=== PATIENT | female | born 1990 | race African-American/Black ===

== ENCOUNTER 2017-10-29 05:55 | Emergency (ER) | payer OTHER ==
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
--- NOTE | 2017-10-29 06:39 | NUR ---
CALLED AGAIN; NO ANSWER
--- NOTE | 2017-10-29 06:54 | NUR ---
VINCENTD AGAIN; NO ANSWER
== END 2017-10-29 06:56 | disposition left against medical advice (07) ==
LOC: ER 06:11
DX: Z53.21 Procedure and treatment not carried out due to patient leaving prior to being seen by health care provider (principal)

== ENCOUNTER 2019-03-22 22:56 | Emergency (ER) | payer OTHER ==
[~2019-03-22] VITALS: Ht 167.6 cm; Wt 126.1 kg
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
[2019-03-23 02:36] LABS: BASOPHILS % (AUTO) 0.1 % (0.0-2.0); EOSINOPHILS % (AUTO) 0.1 % (0.0-6.0); HEMATOCRIT 41 % (33-45); HEMOGLOBIN 13.5 g/dL (11.5-14.8); LYMPHOCYTES # (AUTO) 1.2 /CMM (0.8-4.8); LYMPHOCYTES % (AUTO) 4.1 % (20.0-44.0); MEAN CORPUSCULAR HGB CONC 33 g/dl (31.0-36.0); MEAN CORPUSCULAR VOLUME 93 fL (82-100); MONOCYTES # (AUTO) 1.7 /CMM (0.1-1.30); MONOCYTES % (AUTO) 5.8 % (2.0-12.0); NEUTROPHILS % (AUTO) 89.9 % (43.0-81.0); PLATELET COUNT (AUTO) 351 /CMM (150-450); RED BLOOD CELL COUNT(AUTO) 4.38 MIL/uL (4.0-5.2); WHITE BLOOD COUNT (AUTO) 28.9 K/uL (4.3-11.0)
[2019-03-23 02:42] LABS: CALCIUM, SERUM 9.3 mg/dL (8.5-10.1); POTASSIUM 3.5 mmol/L (3.5-5.1)
[2019-03-23 03:25] LABS: APPEARANCE,URINE Slightly Cloudy (CLEAR); BILIRUBIN,URINE SMALL (NEGATIVE); BLOOD, URINE Trace-lysed Ery/uL (NEGATIVE); COLOR,URINE Dark (YELLOW); KETONES,URINE 15 (NEGATIVE); LEUKOCYTE ESTERASE ,URINE Trace (NEGATIVE); NITRITE, URINE Positive (NEGATIVE); PH,URINE 5.5 (5.0-8.0); PROTEIN,URINE 100 mg/dl (NEGATIVE); UGLUCOSE Negative (NEGATIVE); UROBILINOGEN,URINE 0.2 EU/dL (0.2)
[2019-03-23 04:01] LABS: WBC,URINE 21-50 /HPF (0-3)
[2019-03-23 04:02] LABS: BACTERIA,URINE Moderate /HPF (None Seen); SQUAMOUS EPITHELIAL CELL,UR Few /HPF (None Seen)
[2019-03-23 04:07] VITALS: BP 122/71
[2019-03-23 04:18] LABS: LYMPHOCYTES % (MANUAL) 3 % (16-48); NEUTROPHILS % (MANUAL) 95 (42-76)
[2019-03-23 04:19] LABS: MONOCYTES % (MANUAL) 2 % (0-11.0)
== END 2019-03-23 04:07 | disposition home or self-care (01) ==
LOC: ER 23:03
DX: N39.0 Urinary tract infection, site not specified (principal); R00.0 Tachycardia, unspecified; J45.909 Unspecified asthma, uncomplicated; Z60.2 Problems related to living alone
CPT/HCPCS: 36415; 71045-TC; 80048-TC; 81000-TC; 85025-TC; 87086-TC; 87186-TC

== ENCOUNTER 2019-04-11 14:55 | Emergency (ER) | payer OTHER ==
[~2019-04-11] VITALS: Ht 167.6 cm; Wt 128.8 kg
--- NOTE | 2019-04-11 15:20 | NUR ---
NAUSEA AND VOMITING, FEELING "FLUSHED" S/P EATING LUNCH AT 1200 TOOK TYLENOL AND MOTRIN W/ NO RELIEF, VOMITING WHILE AT TRIAGE. PATIENT A/OX3, BREATHING EVEN AND UNLABORED, NO SOB NOTED. ATTACHED TO THE MONITOR. PENDING MD GERBER.
[2019-04-11] MEDS ORDERED: ONDANSETRON HCL/PF 4 MG/2 ML VIAL IVP ONE (15:30)
[2019-04-11] MEDS ORDERED: IV NS 0.9% 1,000 ML BAG IV ONE (15:30)
[2019-04-11 15:55] LABS: BASOPHILS # (AUTO) 0.1 /CMM (0.0-0.2); BASOPHILS % (AUTO) 0.4 % (0.0-2.0); EOSINOPHILS % (AUTO) 0.1 % (0.0-6.0); HEMATOCRIT 42 % (33-45); HEMOGLOBIN 14.3 g/dL (11.5-14.8); LYMPHOCYTES # (AUTO) 2.4 /CMM (0.8-4.8); LYMPHOCYTES % (AUTO) 12.4 % (20.0-44.0); MEAN CORPUSCULAR HGB CONC 34 g/dl (31.0-36.0); MEAN CORPUSCULAR VOLUME 94 fL (82-100); MONOCYTES # (AUTO) 0.5 /CMM (0.1-1.30); MONOCYTES % (AUTO) 2.3 % (2.0-12.0); NEUTROPHILS # (AUTO) 16.6 /CMM (1.8-8.9); NEUTROPHILS % (AUTO) 84.8 % (43.0-81.0); PLATELET COUNT (AUTO) 399 /CMM (150-450); RED BLOOD CELL COUNT(AUTO) 4.52 MIL/uL (4.0-5.2); WHITE BLOOD COUNT (AUTO) 19.5 K/uL (4.3-11.0)
[2019-04-11] MEDS ORDERED: ONDANSETRON HCL/PF 4 MG/2 ML VIAL ONE (15:58)
[2019-04-11 16:02] LABS: CALCIUM, SERUM 9.3 mg/dL (8.5-10.1); POTASSIUM 2.9 mmol/L (3.5-5.1)
[2019-04-11 16:04] LABS: APPEARANCE,URINE Slightly Cloudy (CLEAR); BILIRUBIN,URINE Negative (NEGATIVE); BLOOD, URINE Moderate Ery/uL (NEGATIVE); COLOR,URINE Yellow (YELLOW); KETONES,URINE Negative (NEGATIVE); LEUKOCYTE ESTERASE ,URINE Trace (NEGATIVE); NITRITE, URINE Negative (NEGATIVE); PH,URINE 5.5 (5.0-8.0); PROTEIN,URINE Negative (NEGATIVE); UGLUCOSE Negative (NEGATIVE); UROBILINOGEN,URINE 0.2 EU/dL (0.2)
[2019-04-11 16:08] LABS: ALBUMIN 3.8 g/dL (3.4-5.0); BILIRUBIN,DIRECT 0.1 mg/dL (0.0-0.2); BILIRUBIN,TOTAL 0.8 mg/dL (0.2-1.0); TOTAL PROTEIN, SERUM 7.6 g/dL (6.4-8.2)
[2019-04-11 16:15] LABS: BACTERIA,URINE Few /HPF (None Seen); SQUAMOUS EPITHELIAL CELL,UR Few /HPF (None Seen)
[2019-04-11] MEDS ORDERED: POTASSIUM CHLORIDE 20 MEQ TAB.PRT.SR PO ONE ×2 (16:41→17:00)
--- NOTE | 2019-04-11 17:09 | NUR ---
PATIENT FEELS BETTER, PIV REMOVED, RX PROVIDED. Patient discharged to home in stable condition. Written and verbal after care instructions given. Patient verbalizes understanding of instruction.
[2019-04-11 17:12] VITALS: BP 114/55
== END 2019-04-11 17:13 | disposition home or self-care (01) ==
LOC: ER 15:00
DX: R11.2 Nausea with vomiting, unspecified (principal); D72.829 Elevated white blood cell count, unspecified; E87.6 Hypokalemia; J45.909 Unspecified asthma, uncomplicated; Z60.2 Problems related to living alone
CPT/HCPCS: 36415; 80048; 80076; 81001; 83690; 84703; 85025; 96361; 96374; 99283; J2405; J7030; 81000-TC

== ENCOUNTER 2019-04-26 13:13 | Emergency (ER) | payer OTHER ==
[~2019-04-26] VITALS: Ht 167.6 cm; Wt 124.7 kg
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
--- NOTE | 2019-04-26 13:55 | NUR ---
KATE STEVE AT BEDSIDE
[2019-04-26 14:25] LABS: BASOPHILS # (AUTO) 0.1 /CMM (0.0-0.2); BASOPHILS % (AUTO) 0.3 % (0.0-2.0); EOSINOPHILS % (AUTO) 0.4 % (0.0-6.0); HEMATOCRIT 43 % (33-45); HEMOGLOBIN 14.4 g/dL (11.5-14.8); LYMPHOCYTES # (AUTO) 2.7 /CMM (0.8-4.8); LYMPHOCYTES % (AUTO) 15.8 % (20.0-44.0); MEAN CORPUSCULAR HGB CONC 34 g/dl (31.0-36.0); MEAN CORPUSCULAR VOLUME 93 fL (82-100); MONOCYTES # (AUTO) 0.7 /CMM (0.1-1.30); MONOCYTES % (AUTO) 3.9 % (2.0-12.0); NEUTROPHILS # (AUTO) 13.7 /CMM (1.8-8.9); NEUTROPHILS % (AUTO) 79.6 % (43.0-81.0); PLATELET COUNT (AUTO) 384 /CMM (150-450); RED BLOOD CELL COUNT(AUTO) 4.62 MIL/uL (4.0-5.2); WHITE BLOOD COUNT (AUTO) 17.2 K/uL (4.3-11.0)
[2019-04-26 14:33] LABS: CALCIUM, SERUM 9.2 mg/dL (8.5-10.1); CREATININE 0.8 mg/dL (0.6-1.3); POTASSIUM 3.4 mmol/L (3.5-5.1)
[2019-04-26 14:44] LABS: ALBUMIN 3.7 g/dL (3.4-5.0); BILIRUBIN,DIRECT 0.1 mg/dL (0.0-0.2); BILIRUBIN,TOTAL 0.6 mg/dL (0.2-1.0); TOTAL PROTEIN, SERUM 7.6 g/dL (6.4-8.2)
[2019-04-26] MEDS ORDERED: HYDROMORPHONE 1 MG/1 ML DISP.SYRIN ONE (14:46)
[2019-04-26] MEDS ORDERED: ONDANSETRON HCL/PF 4 MG/2 ML VIAL ONE (14:46)
[2019-04-26] MEDS ORDERED: ONDANSETRON HCL/PF 4 MG/2 ML VIAL IV ONE (15:00)
[2019-04-26] MEDS ORDERED: HYDROMORPHONE 1 MG/1 ML DISP.SYRIN IV ONE (15:00)
--- NOTE | 2019-04-26 15:04 | NUR ---
US TECH AT BEDSIDE
[2019-04-26 15:43] LABS: THYROID STIMULATING HORMONE 3.281 uIU/mL (0.358-3.74)
[2019-04-26 16:18] LABS: LYMPHOCYTES % (MANUAL) 17 % (16-48); MONOCYTES % (MANUAL) 4 % (0-11.0); NEUTROPHILS % (MANUAL) 79 (42-76)
[2019-04-26] MEDS ORDERED: POTASSIUM CHLORIDE 20 MEQ TAB.PRT.SR PO ONE ×2 (16:30→16:32)
[2019-04-26 16:40] LABS: APPEARANCE,URINE Slightly Cloudy (CLEAR); BILIRUBIN,URINE Negative (NEGATIVE); BLOOD, URINE Negative Ery/uL (NEGATIVE); COLOR,URINE Dark (YELLOW); KETONES,URINE Negative (NEGATIVE); LEUKOCYTE ESTERASE ,URINE Trace (NEGATIVE); NITRITE, URINE Negative (NEGATIVE); PH,URINE 6.5 (5.0-8.0); PROTEIN,URINE Trace mg/dl (NEGATIVE); UGLUCOSE Negative (NEGATIVE)
[2019-04-26 16:53] LABS: BACTERIA,URINE Many /HPF (None Seen); SQUAMOUS EPITHELIAL CELL,UR Many /HPF (None Seen)
[2019-04-26 16:54] LABS: RBC,URINE 0-2 /HPF (0-2)
--- NOTE | 2019-04-26 17:45 | NUR ---
IV removed. Catheter intact and site benign. Pressure and 4x4 applied to site. No bleeding noted.Patient discharged to home in stable condition. Written and verbal after care instructions given. Patient verbalizes understanding of instruction.
[2019-04-26 17:47] VITALS: BP 128/89
== END 2019-04-26 17:47 | disposition home or self-care (01) ==
LOC: ER 13:13
DX: D72.829 Elevated white blood cell count, unspecified (principal); R51 Headache; R82.90 Unspecified abnormal findings in urine; E66.01 Morbid (severe) obesity due to excess calories; J45.909 Unspecified asthma, uncomplicated; Z68.41 Body mass index [BMI] 40.0-44.9, adult; Z60.2 Problems related to living alone
CPT/HCPCS: 36415; 76536; 80048; 80076; 81001; 84439; 84443; 84481; 84703; 85025; 85652; 86140; 87086; 93005; 96374; 96375; 99284; J1170; J2405; 81000-TC

== ENCOUNTER 2019-06-10 15:20 | Emergency (ER) | payer OTHER ==
[~2019-06-10] VITALS: Ht 167.6 cm; Wt 127.0 kg
--- NOTE | 2019-06-10 15:30 | NUR ---
Came in for Body Pain "Been here for same thing before. Information is there." Chills/cold. Anxious hyperventilating. To ER bed 12, hooked to ira, changed to gowbrandt, provided w warm blanket. Awaiting md witt.
--- NOTE | 2019-06-10 15:45 | NUR ---
KATE Shrestha at Bedside
[2019-06-10] MEDS ORDERED: ONDANSETRON HCL/PF 4 MG/2 ML VIAL IVP ONE (16:00)
[2019-06-10] MEDS ORDERED: IV NS 0.9% 1,000 ML BAG IV ONE (16:00)
[2019-06-10] MEDS ORDERED: HYDROMORPHONE INJ 2 MG/ML DISP.SYRIN IV ONE (16:00)
[2019-06-10] MEDS ORDERED: ONDANSETRON HCL/PF 4 MG/2 ML VIAL ONE (16:01)
[2019-06-10] MEDS ORDERED: HYDROMORPHONE 1 MG/1 ML DISP.SYRIN ONE (16:01)
[2019-06-10] MEDS ORDERED: LIDOCAINE 1%-EPI 1:100,000 20 ML VIAL TP ONE (17:30)
[2019-06-10] MEDS ORDERED: ACETAMINOPHEN 325 MG TABLET PO ONE (17:30)
[2019-06-10 17:36] VITALS: BP 126/67
== END 2019-06-10 17:39 | disposition home or self-care (01) ==
LOC: ER 15:20
DX: M79.18 Myalgia, other site (principal); J45.909 Unspecified asthma, uncomplicated; E87.6 Hypokalemia
CPT/HCPCS: 96374; 96375; 99283; J1170; J2405; J7030

== ENCOUNTER 2019-07-30 13:34 | Emergency (ER) | payer OTHER ==
[~2019-07-30] VITALS: Ht 167.6 cm; Wt 90.7 kg
[2019-07-30 13:59] VITALS: BP 144/79
[2019-07-30] MEDS ORDERED: HYDROCODONE/APAP 5/325MG 1 EACH TABLET PO ONE (14:30)
[2019-07-30] MEDS ORDERED: HYDROCODONE/APAP 5/325MG 1 EACH TABLET ONE (14:49)
== END 2019-07-30 15:14 | disposition home or self-care (01) ==
LOC: ER 13:34
DX: M79.10 Myalgia, unspecified site (principal); G89.29 Other chronic pain; J45.909 Unspecified asthma, uncomplicated

== ENCOUNTER 2020-05-28 15:12 | Emergency (ER) | payer OTHER ==
[~2020-05-28] VITALS: Ht 167.6 cm; Wt 117.5 kg
[2020-05-28 15:30] VITALS: BP 169/91
== END 2020-05-28 16:06 | disposition home or self-care (01) ==
LOC: ER 15:14
DX: J02.0 Streptococcal pharyngitis (principal); J45.909 Unspecified asthma, uncomplicated

== ENCOUNTER 2021-06-16 09:07 | Emergency (ER) | payer OTHER ==
[~2021-06-16] VITALS: Ht 167.6 cm; Wt 115.7 kg
[2021-06-16 09:11] VITALS: BP 164/106
--- NOTE | 2021-06-16 09:12 | NUR ---
AT BEDSIDE FOR EVAL
[2021-06-16] MEDS ORDERED: SILVER SULFADIAZINE CREAM 25 GM TUBE ONE (09:16)
--- NOTE | 2021-06-16 09:20 | NUR ---
WOUND CLEANING AND DRESSING BY IT TRAINEE.
--- NOTE | 2021-06-16 09:26 | NUR ---
Patient discharged to home in stable condition. Written and verbal after care instructions given. Patient verbalizes understanding of instruction.
[2021-06-16] MEDS ORDERED: SILVER SULFADIAZINE CREAM 25 GM TUBE TP ONE (09:30)
== END 2021-06-16 09:26 | disposition home or self-care (01) ==
LOC: ER 09:11
DX: T24.232A Burn of second degree of left lower leg, initial encounter (principal); J45.909 Unspecified asthma, uncomplicated; W86.1XXA Exposure to industrial wiring, appliances and electrical machinery, initial encounter; Y93.89 Activity, other specified; Y92.89 Other specified places as the place of occurrence of the external cause; Y99.8 Other external cause status

== ENCOUNTER 2021-08-22 07:37 | Emergency (ER) | payer OTHER ==
[~2021-08-22] VITALS: Ht 167.6 cm; Wt 113.4 kg
[2021-08-22 08:01] VITALS: BP 127/66
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
[2021-08-22] MEDS ORDERED: IBUP-1957 PO (08:29)
== END 2021-08-22 08:55 | disposition home or self-care (01) ==
LOC: ER 07:43
DX: S63.696A Other sprain of right little finger, initial encounter (principal); S40.012A Contusion of left shoulder, initial encounter; J45.909 Unspecified asthma, uncomplicated; V49.49XA Driver injured in collision with other motor vehicles in traffic accident, initial encounter; Y93.89 Activity, other specified; Y92.413 State road as the place of occurrence of the external cause; Y99.8 Other external cause status
CPT/HCPCS: 71045-TC; 73130-TC

== ENCOUNTER 2021-11-24 10:26 | Emergency (ER) | payer OTHER ==
[~2021-11-24] VITALS: Ht 167.6 cm; Wt 114.8 kg
[2021-11-24 10:26] VITALS: BP 143/88
[~2021-11-24 10:26] MED LIST: IBUP-1957 PO
[2021-11-24] MEDS ORDERED: AMOX-427 PO (10:48)
--- NOTE | 2021-11-24 10:50 | NUR ---
PT REFUSED THROAT SWAB, SHE WILL FOLLOW UP WITH PCP
== END 2021-11-24 11:10 | disposition home or self-care (01) ==
LOC: ER 10:53
DX: J02.9 Acute pharyngitis, unspecified (principal); J45.909 Unspecified asthma, uncomplicated

== ENCOUNTER 2022-05-26 13:20 | Emergency (ER) | payer OTHER ==
[~2022-05-26] VITALS: Ht 167.6 cm; Wt 114.3 kg
[~2022-05-26 13:20] MED LIST changes: +AMOX-427 PO
[2022-05-26 13:26] VITALS: BP 136/83
--- NOTE | 2022-05-26 13:26 | NUR ---
BIBS C/O LOWER BACK PAIN FOR THE PAST 12 HOURS, DENIES ANY INJURY.
[2022-05-26] MEDS ORDERED: HYDR-4209 PO (14:20)
[2022-05-26] MEDS ORDERED: CARI350T PO (14:20)
[2022-05-26] MEDS ORDERED: KETOROLAC TROMETHAMINE INJ 60 MG/2 ML VIAL IM ONE (14:30)
[2022-05-26] MEDS ORDERED: KETOROLAC TROMETHAMINE INJ 30 MG/ML VIAL ONE (14:44)
== END 2022-05-26 14:49 | disposition home or self-care (01) ==
LOC: ER 13:29
DX: M54.42 Lumbago with sciatica, left side (principal); J45.909 Unspecified asthma, uncomplicated
CPT/HCPCS: 99283; 96372; J1885

== ENCOUNTER 2022-12-07 08:31 | Emergency (ER) | payer OTHER ==
[~2022-12-07] VITALS: Ht 167.6 cm; Wt 113.9 kg
[~2022-12-07 08:31] MED LIST changes: +CARI350T PO; +HYDR-4209 PO
--- NOTE | 2022-12-07 08:35 | NUR ---
REceive pt 32 yrs female walking infrom, trige c/o sob AND aduble WHEZZING respiration spont
[2022-12-07] MEDS ORDERED: IPRATROPIUM NEB FS 0.5 MG/2.5 ML AMPUL.NEB ONE ×2 (08:49→10:31)
[2022-12-07] MEDS ORDERED: ALBUTEROL FS 2.5 MG/0.5 ML VIAL.NEB ONE ×3 (08:49→10:31)
--- NOTE | 2022-12-07 08:50 | NUR ---
RT AT BED SIDE for breating TX NO distress
[2022-12-07] MEDS: ALBUTEROL FS 2.5 MG/3 ML VIAL.NEB CONTNEB ONE ×2 (09:03→10:30)
[2022-12-07] MEDS: IPRATROPIUM NEB FS 0.5 MG/2.5 ML AMPUL.NEB NEB ONE ×2 (09:03→10:30)
[2022-12-07] MEDS ORDERED: predniSONE 20 MG TABLET ONE (09:17)
[2022-12-07] MEDS: predniSONE 20 MG TABLET PO ONE (09:18)
--- NOTE | 2022-12-07 10:14 | NUR ---
NO SOB OR DISTRESS NO RESPRATOR WHEZZING
[2022-12-07] MEDS ORDERED: ALBU8.5H8 INH (11:02)
[2022-12-07] MEDS ORDERED: PRED50TA PO (11:02)
--- NOTE | 2022-12-07 11:08 | NUR ---
Patient discharged to home in stable condition. Written and verbal after care instructions given. Patient verbalizes understanding of instruction.
[2022-12-07 11:19] VITALS: BP 138/77
== END 2022-12-07 11:20 | disposition home or self-care (01) ==
LOC: ER 08:35
DX: J45.909 Unspecified asthma, uncomplicated (principal); Z79.899 Other long term (current) drug therapy
CPT/HCPCS: 99285; 94640 ×2; J7512

== ENCOUNTER 2023-05-24 08:43 | Emergency (ER) | payer OTHER ==
[~2023-05-24] VITALS: Ht 167.6 cm; Wt 116.1 kg
[~2023-05-24 08:43] MED LIST changes: +ALBU8.5H8 INH; +PRED50TA PO
--- NOTE | 2023-05-24 08:55 | NUR ---
PATIENT CAME WITH LOWER BACK PAIN RADIATING TO BOTH LOWER LEG.ALERT AND ORIENTED.ON ROOM AIR.ATTACHED TO STAMP CLASSIFIER AND PULSE OXYMETER.SAFTEY PRECAUTION ON BED SIDE.
--- NOTE | 2023-05-24 09:00 | NUR ---
DR TURNER AT BED SIDE.
[2023-05-24] MEDS ORDERED: KETOROLAC TROMETHAMINE INJ 30 MG/ML VIAL ONE (09:11)
[2023-05-24] MEDS ORDERED: DIAZEPAM 5 MG TABLET ONE (09:11)
--- NOTE | 2023-05-24 09:16 | NUR ---
URINE COLLECTED AND SEND TO LAB.NOTIFIED THE LAB.
[2023-05-24] MEDS ORDERED: LIDO30AD10 TP (09:17)
[2023-05-24] MEDS ORDERED: KETOROLAC TROMETHAMINE INJ 60 MG/2 ML VIAL IM ONE (09:30)
[2023-05-24] MEDS ORDERED: DIAZEPAM 5 MG TABLET PO ONE (09:30)
--- NOTE | 2023-05-24 09:42 | NUR ---
Patient discharged to home in stable condition. Written and verbal after care instructions given. Patient verbalizes understanding of instruction.
[2023-05-24 09:43] VITALS: BP 118/78; TEMP 98.1; O2SAT 99
== END 2023-05-24 09:43 | disposition home or self-care (01) ==
LOC: ER 08:47
DX: M54.50 Low back pain, unspecified (principal); J45.909 Unspecified asthma, uncomplicated; Z79.899 Other long term (current) drug therapy
CPT/HCPCS: 99283; 96372; 84703; J1885

== ENCOUNTER 2023-09-01 14:35 | Emergency (ER) | payer OTHER ==
[~2023-09-01] VITALS: Ht 167.6 cm; Wt 116.1 kg
[~2023-09-01 14:35] MED LIST changes: +LIDO30AD10 TP
[2023-09-01 14:45] VITALS: BP 122/77; TEMP 98.4; O2SAT 100
[2023-09-01] MEDS ORDERED: ALBUTEROL FS 2.5 MG/0.5 ML VIAL.NEB NEB PRN (16:30)
[2023-09-01] MEDS ORDERED: IPRATROPIUM NEB FS 0.5 MG/2.5 ML AMPUL.NEB NEB PRN (16:30)
[2023-09-01 17:02] LABS: PREGNANCY TEST URINE QUAL NEGATIVE (NEGATIVE)
== END 2023-09-01 16:30 | disposition left against medical advice (07) ==
LOC: ER 14:43
DX: R06.02 Shortness of breath (principal); J45.909 Unspecified asthma, uncomplicated; Z20.822 Contact with and (suspected) exposure to COVID-19
CPT/HCPCS: 99284; 71045; 87426; 87804 ×2; 84703; C9803

== ENCOUNTER 2023-09-03 09:55 | Emergency (ER) | payer OTHER ==
[~2023-09-03] VITALS: Ht 167.6 cm; Wt 115.7 kg
[2023-09-03] MEDS ORDERED: ALBUTEROL FS 2.5 MG/3 ML VIAL.NEB ONE (10:21)
[2023-09-03] MEDS ORDERED: IPRATROPIUM NEB FS 0.5 MG/2.5 ML AMPUL.NEB ONE (10:21)
[2023-09-03 10:31] VITALS: O2SAT 98
[2023-09-03] MEDS: IPRATROPIUM NEB FS 0.5 MG/2.5 ML AMPUL.NEB NEB ONE (10:31)
[2023-09-03] MEDS: ALBUTEROL FS 2.5 MG/3 ML VIAL.NEB CONTNEB ONE (10:31)
[2023-09-03] MEDS ORDERED: ALBU18HF2 INH (11:11)
[2023-09-03] MEDS ORDERED: PRED20TA PO (11:11)
[2023-09-03 11:22] VITALS: BP 133/84; TEMP 98
[2023-09-03 11:25] VITALS: O2SAT 99
== END 2023-09-03 11:23 | disposition home or self-care (01) ==
LOC: ER 09:55
DX: J45.909 Unspecified asthma, uncomplicated (principal); Z20.822 Contact with and (suspected) exposure to COVID-19

== ENCOUNTER 2023-09-08 08:50 | Emergency (ER) | payer OTHER ==
[~2023-09-08] VITALS: Ht 167.6 cm; Wt 118.4 kg
[~2023-09-08 08:50] MED LIST changes: +ALBU18HF2 INH; +PRED20TA PO
[2023-09-08 09:39] VITALS: TEMP 98.6
[2023-09-08] MEDS ORDERED: LORAZEPAM 1 MG TABLET PO ONE (10:00)
[2023-09-08] MEDS ORDERED: LORAZEPAM 1 MG TABLET ONE (10:04)
[2023-09-08 10:56] VITALS: BP 122/70; O2SAT 100
== END 2023-09-08 10:56 | disposition home or self-care (01) ==
LOC: ER 10:03
DX: F41.9 Anxiety disorder, unspecified (principal); J45.909 Unspecified asthma, uncomplicated

== ENCOUNTER 2024-07-09 11:13 | Emergency (ER) | payer OTHER ==
[~2024-07-09] VITALS: Ht 167.6 cm; Wt 108.9 kg
[2024-07-09 11:23] VITALS: BP 131/81; TEMP 97.9
[2024-07-09] MEDS ORDERED: IBUP-1953 PO (13:56)
[2024-07-09 14:00] VITALS: O2SAT 100
== END 2024-07-09 14:05 | disposition home or self-care (01) ==
LOC: ER 11:13
DX: S92.422A Displaced fracture of distal phalanx of left great toe, initial encounter for closed fracture (principal); J45.909 Unspecified asthma, uncomplicated; F41.9 Anxiety disorder, unspecified; W22.09XA Striking against other stationary object, initial encounter; Y93.89 Activity, other specified; Y92.89 Other specified places as the place of occurrence of the external cause; Y99.8 Other external cause status
CPT/HCPCS: 73660-TC